=== PATIENT | female | born 1965 | race Caucasian/White ===

== ENCOUNTER 2021-03-09 09:05 | Outpatient (REF) | payer BC, SELFPAY ==
--- NOTE | ~2021-03-09 | XR_ITS ---
EXAMINATION: BILATERAL KNEE X-RAY CLINICAL INFORMATION: Pain COMPARISON: None TECHNIQUE: 2 views of each knee FINDINGS: Left: Bone alignment is normal. No fracture or dislocation is seen. There is arthritis at the patellofemoral and medial femoral tibial joint with joint space narrowing and osteophyte formation. There is medial and lateral degenerative meniscal calcification. There is a moderate joint effusion. Right: Bone alignment is normal. No fracture or dislocation is seen. There is mild arthritis at the medial femoral tibial and patellofemoral joints with osteophyte formation. There is degenerative meniscal calcification. There is no joint effusion. XR/XR knee RT 2V IMPRESSION: Bilateral osteoarthritis, left greater than right. Right knee joint effusion.
--- NOTE | ~2021-03-09 | XR_ITS ---
EXAMINATION: BILATERAL KNEE X-RAY CLINICAL INFORMATION: Pain COMPARISON: None TECHNIQUE: 2 views of each knee FINDINGS: Left: Bone alignment is normal. No fracture or dislocation is seen. There is arthritis at the patellofemoral and medial femoral tibial joint with joint space narrowing and osteophyte formation. There is medial and lateral degenerative meniscal calcification. There is a moderate joint effusion. Right: Bone alignment is normal. No fracture or dislocation is seen. There is mild arthritis at the medial femoral tibial and patellofemoral joints with osteophyte formation. There is degenerative meniscal calcification. There is no joint effusion. XR/XR knee LT 2V IMPRESSION: Bilateral osteoarthritis, left greater than right. Right knee joint effusion.
[2021-03-09 11:33] LABS: Appearance Urine CLEAR; Color Urine YELLOW; Glucose Urine UA NEG (NEG); Leukocyte Esterase Urine NEG (NEG); Nitrite Urine NEG (NEG); Specific Gravity - Urine 1.015 (1.005-1.025); Urine Blood NEG (NEG); Urine Ketones NEG (NEG); Urine Protein NEG (NEG-TRACE)
[2021-03-09 11:42] LABS: Hematocrit 39.4 % (37.0-47.0); Hemoglobin 13.2 g/dl (12.0-16.0); Mean Corpuscular HGB Conc 33.5 g/dl (31.0-35.0); Mean Corpuscular Hemoglobin 29.8 pg (27.0-33.0); Mean Corpuscular Volume 88.9 fL (80.0-98.0); Mean Platelet Volume 9.2 fL (9.4-12.3); Platelet Count 288 X10*3/uL (160-400); Red Blood Count 4.43 X10*6/uL (4.20-5.50); Red Cell Distribution Width 12.7 % (11.0-16.0); White Blood Count 5.2 X10*3/uL (4.8-10.8)
[2021-03-09 11:47] LABS: RBC Urine 0-2 /HPF (0); Squamous Epithelial Cell Urine 2+ /LPF; WBC Urine 0 /HPF (0-4)
[2021-03-09 12:30] LABS: TSH reflex Free T4 1.22 uIU/mL (0.32-4.0); Vitamin D 25-OH Total 64.1 ng/mL (>30)
[2021-03-09 12:33] LABS: Alanine Aminotransferase 21 U/L (0-31); Albumin Level 4.3 g/dL (3.5-5.0); Alkaline Phosphatase 45 U/L (39-117); Anion Gap 12 (12-20); Aspartate Amino Transferase 23 U/L (5-31); Bilirubin Total 0.8 mg/dL (0.0-1.0); Blood Urea Nitrogen 11 mg/dL (9-16); Calcium 9.7 mg/dL (8.4-10.2); Carbon Dioxide 27 mmol/L (22-29); Chloride 106 mmol/L (96-108); Cholesterol 224 mg/dL; Estimated Glomerular Filt Rate > 60; Glucose Fasting 89 mg/dL (60-99); HDL Cholesterol 73 mg/dL; LDL Cholesterol Calculated 133 mg/dl; Potassium 4.1 mmol/L (3.3-5.1); Sodium 141 mmol/L (135-145); Triglycerides 90 mg/dL
[2021-03-09 12:50] LABS: Rheumatoid Factor < 15.0 IU/mL (<15.0)
[2021-03-11 05:26] LABS: Lyme Abs Screen <0.90 index
[2021-03-12 12:46] LABS: Cyclic Citrullinated Peptide <16 UNITS
== END 2021-03-09 09:06 | disposition home or self-care (01) ==
LOC: HO.HMGCLDS 09:05
PROVIDERS: PCP Internal Medicine; Visit Provider Internal Medicine
DX: Z00.00 Encounter for general adult medical examination without abnormal findings (principal); M25.561 Pain in right knee; M25.562 Pain in left knee
CPT/HCPCS: 36415; 73560; 80053; 80061; 81001; 82306; 84443; 85027; 86200; 86431; 86617; 86618